=== PATIENT | female | born 1995 | race Caucasian/White ===

== ENCOUNTER 2016-09-05 11:11 | Emergency (ER) | payer OTHER ==
[~2016-09-05] VITALS: Ht 167.6 cm; Wt 117.5 kg
[~2016-09-05 11:11] MED LIST: DENIES
[2016-09-05 11:14] VITALS: Ht 167.6 cm; Wt 117.5 kg
[2016-09-05] MEDS ORDERED: HYDR-906 PO (12:57)
[2016-09-05] MEDS ORDERED: IBUP800T25 PO (12:57)
[2016-09-05] MEDS ORDERED: AMOX1TAB10 PO (12:57)
[2016-09-05] MEDS ORDERED: HYDROCODONE/APAP (5/325) TAB PO ONE (13:00)
--- NOTE | 2016-09-05 13:20 | ERD ---
ER Documentation Chief Complaint Date/Time DATE: 09/05/16 TIME: 13:10 Chief Complaint HEADACHE & FEVERS X4 DAYS. MOTRIN TAKEN AT 8 AM. HPI This is a 21-year-old female with no past medical history that presents to the emergency department complaining of 4 days of fever shaking and chills, sore throat, bilateral ear pain, and a bandlike headache. The patient indicates that she took 600 mg of Motrin at 8 AM, 3 and half hours prior to arrival. She indicates this improved her symptoms but does not completely resolve them. She denies any recent instrumentation into the ears. She has had no discharge from the ears. She has had transparent rhinorrhea. She denies a productive or nonproductive cough. She indicates that the headache is a bandlike headache, not the worst headache of her life and, 4 out of 10 in intensity with no neck pain. She denies any rashes. She has had no recent travel or prolonged immobilization. She denies any sick contacts. ROS All systems reviewed and are negative except as per history of present illness. Medications Home Meds Active Scripts Amoxicillin/Potassium Clav (Amox-Clav 875-125 mg Tablet) 875-125 mg Tab, 1 TAB PO BID, #20 TAB Prov:ANGEL PENDLETON 09/05/16 Ibuprofen* (Motrin*) 800 Mg Tab, 800 MG PO Q6H Y for PAIN AND OR ELEVATED TEMP, #30 TAB Prov:ANGEL PENDLETON 09/05/16 Hydrocodone/Acetaminophen ([place] 5-325 Tablet) 1 Each Tablet, 1 TAB PO Q6H Y for PAIN, #20 TAB Prov:ANGEL PENDLETON 09/05/16 Reported Medications [Denies] No Conflict Check 08/22/12 Allergies Allergies: Coded Allergies: No Known Drug Allergies (Verified Allergy, Mild, 09/05/16) PMhx/Soc Medical and Surgical Hx: pt denies Medical Hx History of Surgery: Yes (PATSY) Anesthesia Reaction: No Hx Neurological Disorder: No Hx Respiratory Disorders: No Hx Cardiac Disorders: No Hx Psychiatric Problems: No Hx Miscellaneous Medical Probl: No Hx Alcohol Use: No Hx Substance Use: No Hx Tobacco Use: No Smoking Status: Never smoker Physical Exam Vitals Vital Signs Date Time Temp Pulse Resp B/P Pulse Ox O2 Delivery O2 Flow Rate FiO2 09/05/16 11:14 98.5 106 16 127/79 98 Physical Exam Constitutional:Well-developed. Well-nourished. HEENT:Normocephalic. Atraumatic.Pupils were equal round reactive to light. Moist mucous membranes. Enlargement and erythremia both tonsils with no tonsillar exudates. Tenderness over the bilateral maxillary sinuses. Endoscopy exam showed sharp optic disc bilaterally venous pulsations were present. No trismus. No brawny induration. No bulging erythema the tympanic membranes bilaterally. No postauricular tenderness. Neck: No nuchal rigidity. No lymphadenopathy. No posterior cervical spine tenderness or step-offs. Respiratory: Not using accessory muscles of respiration.Lungs were clear to auscultation bilaterally. No rhonchi. No rales. No wheezing. Cardiovascular: Regular rate regular rhythm.No murmurs. No rubs were appreciated.S1, S2 normal. Distal pulses are palpable 2+ bilaterally. GI: Abdomen was soft. Nontender. Non Distended. No pulsatile abdominal masses or bruits. No rebound. No guarding. Bowel sounds were present and normal. Muscle skeletal: Full range of motion of both the upper and lower extremities bilaterally.Normal muscle tone.No assymetrical calf tenderness or swelling. Skin: No petechia, no purpura. No lesions on the palms or the soles of the feet. No maculopapular rash. NEURO: Patient was alert, awake, orientated x3.No facial droop. Gait observed and normal with no ataxia.Speech had regular rate and rhythm. No focal neurological deficits. Results 24 hrs Current Medications Medications (Trade) Dose Ordered Sig/Jac Route PRN Reason Start Time Stop Time Status Last Admin Dose Admin Acetaminophen/ Hydrocodone Bitart ([place] (5/325)) 1 tab ONCE ONCE PO 09/05/16 13:00 09/05/16 13:01 DC Procedures/MDM The patient presented to the emergency department with an acute single headache , sore throat and ear ache that presented within days of onset my differential diagnosis included but was not limited to meningitis, SAH, intracerebral hemorrhage, hypertensive encephalopathy, cranial artery dissection, cerebral venous sinus thrombosis, traumatic, acute sinusitis. The patient has no ocular symptoms to suggest temporal neuritis, acute narrow-angle glaucoma or pituitary apoplexy. The patient did not appear to have a toxic or metabolic etiology such as fever, hypoglycemia, high-altitude disease or carbon monoxide poisoning. This was not the patients worse headache of their life. The patient had a complete neurologic and fundoscopic exam performed by myself that was normal with no focal neurological deficits or retinal hemorrhage. The patient stated this headache was not severe or distinct from other headaches and the history with the physical exam findings did not likely suggest SAH. Therefore, I did not feel it was clinically necessary to perform a lumbar puncture and CSF analysis. The patient had tenderness over the maxillary sinuses and my clinical impression was the patient had viral pharyngitis and acute sinusitis. She was nontoxic in appearance and afebrile. I did feel the patient be safely discharged home with a prescription of amoxicillin, Motrin and [place] for breakthrough pain. The patient was discharged home in fair condition. They were instructed to return to the emergency department at any time if there was any worsening of their condition. The patient stated they would follow up with their PCP in the next 24-48 hours to initiate a suitable medication regimen under the care of their PCP as well as to allow their PCP to monitor any drug reactions. The patient was discharged home with prescriptions after they gave informed consent to the new medication. They were also fully informed by myself on the adverse effects and adverse drug interactions in order to provide adequate safeguards to prevent possible adverse reactions to medications. Departure Diagnosis: Primary Impression: Acute sinusitis Sinusitis location: maxillary Recurrence: not specified as recurrent Qualified Code: J01.00 - Acute maxillary sinusitis, recurrence not specified Additional Impression: Tension type headache Headache chronicity pattern: acute headache Condition: Fair Patient Instructions: Headache, Tension, Sinusitis, Abx Tx Referrals: MEAGAN HORAN (PCP) ANGEL PENDLETON Sep 05, 2016 13:20
[2016-09-05 13:26] VITALS: BP 129/78; PULSE 85; RESP 20
== END 2016-09-05 13:27 | disposition home or self-care (01) ==
LOC: FTE 11:11
DX: J01.00 Acute maxillary sinusitis, unspecified (principal); G44.209 Tension-type headache, unspecified, not intractable
CPT/HCPCS: Z7502; Z7610; 99284

== ENCOUNTER 2017-12-07 20:02 | Emergency (ER) | END 2017-12-08 00:25 | disposition home or self-care (01) ==